=== PATIENT | female | born 1980 | race Caucasian/White ===

== ENCOUNTER 2022-12-03 19:22 | Inpatient (IN) | payer OTHER ==
[~2022-12-03] VITALS: Ht 167.6 cm; Wt 93.4 kg
[2022-12-04] MEDS ORDERED: PRENATAL TABLE1 EAC4 PO (00:43)
== END 2022-12-06 13:16 | disposition home or self-care (01) | DRG 807 ==
LOC: OB/GYN 19:22 → LDR 19:22 → OB/GYN 12-04 17:04
PROVIDERS: ADMIT Obstetrics & Gynecology; ATTEND Obstetrics & Gynecology
PROC: 4A1HXCZ Monitoring of Products of Conception, Cardiac Rate, External Approach (ICD-10-PCS; 2022-12-03)
PROC: 10E0XZZ Delivery of Products of Conception, External Approach (ICD-10-PCS; principal; 2022-12-04)
PROC: 0HQ9XZZ Repair Perineum Skin, External Approach (ICD-10-PCS; 2022-12-04)
DX: O70.0 First degree perineal laceration during delivery (principal); Z37.0 Single live birth; Z3A.40 40 weeks gestation of pregnancy